=== PATIENT | female | born 1995 | race Caucasian/White ===

== ENCOUNTER 2023-06-10 10:47 | Emergency (ER) | payer OTHER, SELFPAY ==
[2023-06-10 11:05] VITALS: BP 153/96; PULSE 70; RESP 16; TEMP 37.2; O2SAT 100
--- NOTE | 2023-06-10 12:16 | ED.GENADULT ---
HPI - General Adult General Chief complaint: Upper Respiratory Infection Stated complaint: pressure in throat Source: patient Mode of arrival: ambulatory Limitations: no limitations History of Present Illness HPI narrative: Pt presents for evaluation of sick symptoms. Symptoms include fatigue, chills, sore throat, headache and postnasal drainage, and productive cough for the past week. No fever, nausea, vomiting or diarrhea. She does not smoke. 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 She does not smoke. She has tylenol, ibuprofen and OTC cold and flu medication for her symptoms. Related Data Home Medications Medication Instructions Recorded Confirmed levothyroxine 75 mcg tablet mcg 06/10/23 rizatriptan 10 mg tablet mg 06/10/23 Allergies Allergy/AdvReac Type Severity Reaction Status Date / Time No Known Allergies Allergy Verified 06/10/23 10:56 Review of Systems Review of Systems: CONSTITUTIONAL: Reports chills and fatigue. Denies fever or sweats. EYES: Denies visual changes, redness, or discharge. ENT: Reports rhinorrhea and sore throat. Denies ear pain CARDIOVASCULAR: Denies chest pain, palpitations, or edema. RESPIRATORY: Reports cough. Denies SOB GASTROINTESTINAL: Denies abdominal pain, nausea, vomiting, or diarrhea. GENITOURINARY: Denies dysuria or hematuria. SKIN: Denies rash or itching. MUSCULOSKELETAL: Denies back pain, joint pain, or myalgia. NEUROLOGIC: Reports generalized weakness. Denies headache, numbness, or dizziness PSYCHIATRIC: Denies anxiety or depression. FOR[facility]LY [facility], [facility] Past Medical History Medical History Thyroid disorder Surgical History Surgical History No pertinent past surgical history Family History Family History Mother Family history non-contributory Social History Social History Substance use: never Living arrangements: with family Gender identity (if verbalized by the patient): Female Spiritual care concerns: No Exam Narrative: GENERAL: Well-appearing, well-nourished, and in no acute distress. HEAD: Normocephalic, atraumatic. EYES: PERRLA and EOMI. ENT: Nares clear, no rhinorrhea or epistaxis. Mucous membranes moist. Oropharynx without tonsillar hypertrophy exudate or other lesions. Bilateral TMs pearly morin nonbulging NECK: Supple. No adenopathy or masses. No carotid bruits or JVD CHEST: Clear to auscultation. No respiratory distress. No wheezes rales or rhonchi HEART: Regular rate and rhythm. No murmur heard. Normal peripheral pulses. ABDOMEN: Soft, nontender, nondistended, normal active bowel sounds. EXTREMITIES: Normal range of motion. No edema. SKIN: Warm, dry, no rash. NEURO: No focal deficits. Alert and oriented x3. PSYCH: Normal mood and affect. Course Course Emergency Course: This is a 27-year-old female who presented for evaluation of sick symptoms. COVID, influenza and strep negative. Exam is consistent with acute viral syndrome. Mucinex DM and Cepacol lozenges for a symptom management. She now states that her thyroid and throat feel swollen . Will discharge with Medrol Dosepak. Increase hydration. [id number] agents for symptom management. Follow up with primary provider. Go to the ER for worsening symptoms. Patient in agreement with plan of care. Level of Care: Express Care Visit Vital Signs Vital signs: Vital Signs Temperature 37.2 C 06/10/23 11:05 Pulse Rate 70 06/10/23 11:05 Respiratory Rate 16 06/10/23 11:05 Blood Pressure 153/96 H 06/10/23 11:05 Pulse Oximetry 100 06/10/23 11:05 Oxygen Delivery Room Air 06/10/23 11:05 Temperature 37.2 C 06/10/23 11:05 Pulse
== END 2023-06-10 13:00 | disposition home or self-care (01) ==
PROVIDERS: Emergency Provider Nurse Practitioner
DX: J06.9 Acute upper respiratory infection, unspecified (principal); Z20.822 Contact with and (suspected) exposure to COVID-19; E07.9 Disorder of thyroid, unspecified
CPT/HCPCS: 87081; 87426; 87804; 87880; 99213; C9803; G0463